=== PATIENT | female | born 1950 | race Caucasian/White ===

== ENCOUNTER 2016-10-29 09:02 | Emergency (ER) | payer MEDICARE, BC ==
[2016-10-29 09:41] VITALS: BP 137/71
--- NOTE | 2016-10-29 10:30 | UC ---
Respiratory Complaint HPI - HPI Summary HPI Summary: cough, malaise, body aches, sinus congestion for past week. Cough began a few days ago. Seems like everything got worse in past 2d, feverish, chills. ST, ear congestion. No vomiting, but will cough to point of gagging. Sinus drainage, yellow. Nonsmoker. No asthma - History of Current Complaint Chief Complaint: UCRespiratory Stated Complaint: COUGH Time Seen by Provider: 10/29/16 10:15 Hx Obtained From: Patient Onset/Duration: Gradual Onset, Lasting Weeks - 1 Timing: Constant Severity Initially: Mild Severity Currently: Moderate Aggravating Factors: Exertion, Recumbent Position Alleviating Factors: Nothing Associated Signs And Symptoms: Positive: Chills, Pleuritic Chest Pain, URI, Nasal Congestion, Hoarseness, Sinus Discomfort. Negative: Wheezing, Hemoptysis - Risk Factors Pulmonary Embolism Risk Factors: Negative Cardiac Risk Factors: Negative Pseudomonas Risk Factors: Negative Tuberculosis Risk Factors: Negative - Allergies/Home Medications Allergies/Adverse Reactions: Allergies Allergy/AdvReac Type Severity Reaction Status Date / Time No Known Allergies Allergy Verified 10/29/16 09:36 Home Medications: Home Medications Phenylephrine-Diphenhydramine- [Robitussin Severe Day & N] 1 mis PO BID PRN 05/07 [History Confirmed 10/29/16] PMH/Surg Hx/FS Hx/Imm Hx Endocrine History Of: Reports: Thyroid Disease - hypothyroid Denies: Diabetes Cardiovascular History Of: Denies: Cardiac Disorders, Hypertension Respiratory History Of: Denies: COPD, Asthma GI/ History Of: Denies: Ulcer - Surgical History Surgical History: Yes Surgery Procedure, Year, and Place: CSECTION X3, [place], recent left broken arm - Family History Known Family History: Positive: Hypertension Negative: Diabetes Family History: none - Social History Occupation: Employed Full-time Lives: Alone Alcohol Use: Occasionally Substance Use Type: None Smoking Status (MU): Never Smoked Tobacco - Immunization History Most Recent Influenza Vaccination: 2016 Review of Systems Constitutional: Negative Skin: Negative Eyes: Negative ENT: Sore Throat, Ear Ache, Nasal Discharge Respiratory: Cough Cardiovascular: Negative Gastrointestinal: Negative Genitourinary: Negative Motor: Negative Neurovascular: Negative Musculoskeletal: Myalgia Neurological: Negative Psychological: Negative All Other Systems Reviewed And Are Negative: Yes Physical Exam Triage Information Reviewed: Yes Appearance: Well-Appearing, No Pain Distress, Well-Nourished Vital Signs: Initial Vital Signs Temp 99.5 F 10/29/16 09:37 Pulse 88 10/29/16 09:37 Resp 18 10/29/16 09:37 BP 137/71 10/29/16 09:37 Pulse Ox 95 10/29/16 09:37 Vital Signs Reviewed: Yes Eye Exam: Normal ENT Exam: Normal Neck exam: Normal Respiratory Exam: Normal Respiratory: Positive: Lungs clear, Normal breath sounds, No respiratory distress, No accessory muscle use - harsh, wet cough Cardiovascular Exam: Normal Musculoskeletal Exam: Normal Neurological Exam: Normal Psychological Exam: Normal Skin Exam: Normal UC Diagnostic Evaluation - Laboratory O2 Sat by Pulse Oximetry: 95 Respiratory Course/Dx - Differential Dx/Diagnosis Differential Diagnosis/HQI/PQRI: Bronchitis, Lower Resp Infection, Sinusitis Provider Diagnoses: URI Discharge - Discharge Plan Condition: Stable Disposition: HOME Prescriptions: Albuterol HFA INHALER* [Ventolin HFA Inhaler*] 1 - 2 puff INH Q4H PRN #1 mdi PRN Reason: Cough Azithromycin TAB* [Zithromax TAB (Z-GLYNN) 250 mg #6 tabs] 2 tab PO .TODAY, THEN 1 DAILY #1 glynn Guaifenesin-Codeine [Cheratussin AC] 1 - 2 teasp PO Q6HR PRN #120 ml MDD 30ml PRN Reason: Cough Patient Education Materials: Upper Respiratory Infection (ED) Referrals: Marcial Hairston MD [Primary Care Provider] -
== END 2016-10-29 10:45 | disposition home or self-care (01) ==
LOC: UCCORT 09:02
DX: J06.9 Acute upper respiratory infection, unspecified (principal)
CPT/HCPCS: 99212; G0463

== ENCOUNTER 2017-03-13 07:42 | Emergency (ER) | payer MEDICARE, BC ==
[2017-03-13 07:52] VITALS: BP 144/79
--- NOTE | 2017-03-13 08:00 | UC ---
Complaint Female HPI - HPI Summary HPI Summary: urinary burning and frequency x 1 day no fever, no chills, no abdominal pain and no flank pain - History Of Current Complaint Chief Complaint: UCGU Stated Complaint: URINARY COMPLAINT Time Seen by Provider: 03/13/17 07:55 Hx Obtained From: Patient Onset/Duration: Gradual Onset, Lasting Days - 1, Still Present Timing: Constant Severity Initially: Moderate Severity Currently: Moderate Character: Burning Aggravating Factor(s): Urination Associated Signs And Symptoms: Negative: Fever, Back Pain, Vaginal Bleeding/ Discharge, Vaginal Discharge, Nausea, Vomiting(# Of Episodes =), Genital Swelling, Genital Blisters, Retained Foregin Body (Specify) - Allergies/Home Medications Allergies/Adverse Reactions: Allergies Allergy/AdvReac Type Severity Reaction Status Date / Time No Known Allergies Allergy Verified 03/13/17 07:47 PMH/Surg Hx/FS Hx/Imm Hx Previously Healthy: Yes Endocrine History: Hypothyroidism - Surgical History Surgical History: Yes Surgery Procedure, Year, and Place: CSECTION X3, [place], recent left broken arm - Family History Known Family History: Positive: Hypertension Negative: Diabetes Family History: none - Social History Alcohol Use: Rare Substance Use Type: None Smoking Status (MU): Never Smoked Tobacco - Immunization History Most Recent Influenza Vaccination: 2016 Review of Systems Constitutional: Negative Skin: Negative Eyes: Negative ENT: Negative Respiratory: Negative Cardiovascular: Negative Gastrointestinal: Negative Genitourinary: Dysuria All Other Systems Reviewed And Are Negative: Yes Physical Exam Triage Information Reviewed: Yes Appearance: Well-Appearing, No Pain Distress, Well-Nourished Vital Signs: Initial Vital Signs Temp 98.2 F 03/13/17 07:48 Pulse 70 03/13/17 07:48 Resp 16 03/13/17 07:48 BP 144/79 03/13/17 07:48 Pulse Ox 96 03/13/17 07:48 Vital Signs Reviewed: Yes Eyes: Positive: Conjunctiva Clear ENT: Positive: Normal ENT inspection, Hearing grossly normal, Pharynx normal Neck exam: Normal Neck: Positive: Supple, Nontender, No Lymphadenopathy Respiratory: Positive: Chest non-tender, Lungs clear, Normal breath sounds Cardiovascular: Positive: RRR, No Murmur, Pulses Normal Abdomen Description: Positive: Nontender, No Organomegaly, Soft. Negative: CVA Tenderness (R), CVA Tenderness (L) Bowel Sounds: Positive: Present Complaint Female Dx - Differential Dx/Diagnosis Provider Diagnoses: uti Discharge - Discharge Plan Condition: Stable Disposition: HOME Prescriptions: Ciprofloxacin TAB* [Cipro 500 MG TAB*] 500 mg PO BID #14 tab Patient Education Materials: Urinary Tract Infection in Women (ED) Referrals: Marcial Hairston MD [Primary Care Provider] - If Needed
== END 2017-03-13 08:16 | disposition home or self-care (01) ==
LOC: UCCORT 07:42
DX: N39.0 Urinary tract infection, site not specified (principal)
CPT/HCPCS: 81003; 87077; 87086; 87186; 99212; G0463

== ENCOUNTER 2017-07-01 17:13 | Emergency (ER) | payer MEDICARE, BC ==
[2017-07-01 17:47] VITALS: BP 155/75
== END 2017-07-01 18:20 | disposition left against medical advice (07) ==
LOC: UCCORT 17:13
DX: N39.9 Disorder of urinary system, unspecified (principal); Z53.21 Procedure and treatment not carried out due to patient leaving prior to being seen by health care provider
CPT/HCPCS: 81003

== ENCOUNTER 2017-07-01 20:17 | Emergency (ER) | payer MEDICARE, BC ==
[2017-07-01 20:31] VITALS: BP 163/81
[2017-07-01] MEDS ORDERED: Nitrofurantoin Macrocrystals* 50 MG CAP PO ONE (21:09)
--- NOTE | 2017-07-01 21:13 | UC ---
Complaint Female HPI - HPI Summary HPI Summary: dysuria, freguency and urgency for one day. this feels like prior uti and her last one was February. - History Of Current Complaint Chief Complaint: UCGU Stated Complaint: URINARY Time Seen by Provider: 07/01/17 21:04 Hx Obtained From: Patient ?: No Onset/Duration: Gradual Onset Timing: Lasting Hours Severity Initially: Moderate Severity Currently: Moderate Character: Burning Aggravating Factor(s): Coughing Alleviating Factor(s): Nothing Associated Signs And Symptoms: Positive: Negative - Allergies/Home Medications Allergies/Adverse Reactions: Allergies Allergy/AdvReac Type Severity Reaction Status Date / Time No Known Allergies Allergy Verified 07/01/17 20:25 PMH/Surg Hx/FS Hx/Imm Hx Previously Healthy: No - prior uti. denies dm. - Surgical History Surgical History: Yes Surgery Procedure, Year, and Place: CSECTION X3, [place], recent left broken arm - Family History Known Family History: Positive: Hypertension Negative: Diabetes Family History: none - Social History Alcohol Use: Rare Substance Use Type: None Smoking Status (MU): Never Smoked Tobacco - Immunization History Most Recent Influenza Vaccination: Not the 2016/2017 Season Review of Systems Genitourinary: Dysuria All Other Systems Reviewed And Are Negative: Yes Physical Exam Triage Information Reviewed: Yes Appearance: Well-Appearing, No Pain Distress, Well-Nourished Vital Signs: Initial Vital Signs Temp 97 F 07/01/17 20:26 Pulse 62 07/01/17 20:26 Resp 16 07/01/17 20:26 BP 163/81 07/01/17 20:26 Pulse Ox 98 07/01/17 20:26 Vital Signs Reviewed: Yes Eyes: Positive: Conjunctiva Clear ENT: Positive: Normal ENT inspection Neck: Positive: Supple, Nontender, No Lymphadenopathy Respiratory: Positive: No respiratory distress, No accessory muscle use Cardiovascular: Positive: RRR Abdomen Description: Negative: Distended, Guarding Musculoskeletal: Positive: Strength Intact, ROM Intact, No Edema Neurological: Positive: Alert, Muscle Tone Normal, Fatigued Psychological: Positive: Normal Response To Family, Age Appropriate Behavior Skin Exam: Normal Skin: Negative: rashes Complaint Female Dx - Differential Dx/Diagnosis Provider Diagnoses: uti. dysuria. Discharge - Discharge Plan Condition: Good Disposition: HOME Prescriptions: Nitrofurantoin Monohyd Macro [Macrobid] 100 mg PO BID #19 cap Patient Education Materials: Dysuria (ED), Urinary Tract Infection in Women (ED ) Referrals: Marcial Hairston MD [Primary Care Provider] - If Needed
--- NOTE | 2017-07-05 07:28 | UC ---
Progress - Progress Note Progress Note: Klebsiella UTI with intermediate sensitivity to nitrofurantoin. Likely best course is to change antibiotic. Bactrim sent to pharmacy.
== END 2017-07-01 21:15 | disposition home or self-care (01) ==
LOC: UCCORT 20:17
DX: N39.0 Urinary tract infection, site not specified (principal); B96.1 Klebsiella pneumoniae [K. pneumoniae] as the cause of diseases classified elsewhere
CPT/HCPCS: 81003; 87077; 87086; 87186; 99212; A9270-GY; G0463

== ENCOUNTER 2017-10-27 08:15 | Emergency (ER) | payer MEDICARE, BC ==
[2017-10-27 08:35] VITALS: BP 138/72
--- NOTE | 2017-10-27 08:52 | UC ---
Eye Complaint HPI - HPI Summary HPI Summary: pink eye x 2 days bilateral red eyes for the past 2 days + yellow / white discharge, no change in vision , no eye pain , no photophobia + cold sx - History of Current Complaint Chief Complaint: UCEye Stated Complaint: EYE COMPLAINT Time Seen by Provider: 10/27/17 08:40 Hx Obtained From: Patient ?: No Onset/Duration: Gradual Onset, Lasting Days - 2, Still Present Timing: Constant Severity Initially: Moderate Severity Currently: Moderate Pain Intensity: 0 Location of Injury: Conjunctiva Aggravating Factor(s): Blinking Alleviating Factor(s): Nothing Associated Signs And Symptoms: Positive: Drainage (Clear), Drainage (Purulent). Negative: Photophobia, Vision Impairment Bilateral, Vision Impairment Right, Vision Impairment Left, Fever, Swelling - Allergies/Home Medications Allergies/Adverse Reactions: Allergies Allergy/AdvReac Type Severity Reaction Status Date / Time No Known Allergies Allergy Verified 10/27/17 08:35 PMH/Surg Hx/FS Hx/Imm Hx Endocrine History: Thyroid Disease, Hypothyroidism - Surgical History Surgical History: Yes Surgery Procedure, Year, and Place: CSECTION X3, [place], recent left broken arm - Family History Known Family History: Positive: Hypertension Negative: Diabetes Family History: none - Social History Alcohol Use: Rare Substance Use Type: None Smoking Status (MU): Never Smoked Tobacco - Immunization History Most Recent Influenza Vaccination: Not the 2016/2017 Season Review of Systems Constitutional: Negative Skin: Negative Eyes: Drainage, Eye Redness ENT: Nasal Discharge Respiratory: Cough Cardiovascular: Negative Is Patient Immunocompromised?: No All Other Systems Reviewed And Are Negative: Yes Physical Exam Triage Information Reviewed: Yes Appearance: Well-Appearing, No Pain Distress, Well-Nourished Vital Signs: Initial Vital Signs Temp 98.0 F 10/27/17 08:31 Pulse 67 10/27/17 08:31 Resp 18 10/27/17 08:31 BP 138/72 10/27/17 08:31 Pulse Ox 97 10/27/17 08:31 Vital Signs Reviewed: Yes Eyes: Positive: Conjunctiva Inflamed - bilateral, Discharge - bilateral ENT: Positive: Normal ENT inspection, Hearing grossly normal, Pharynx normal Neck exam: Normal Neck: Positive: Supple, Nontender, No Lymphadenopathy Respiratory: Positive: Chest non-tender, Lungs clear, Normal breath sounds, No respiratory distress Cardiovascular: Positive: RRR, No Murmur, Pulses Normal, Brisk Capillary Refill Skin Exam: Normal Eye Complaint Course/Dx - Differential Dx/Diagnosis Provider Diagnoses: conjunctivitis Discharge - Discharge Plan Condition: Stable Disposition: HOME Prescriptions: Tobramycin 0.3% OPHTH.DANIEL* 1 drop BOTH EYES Q4H #1 btl Patient Education Materials: Conjunctivitis (ED) Referrals: Marcial Hairston MD [Primary Care Provider] - 5 Days
== END 2017-10-27 08:57 | disposition home or self-care (01) ==
LOC: UCCORT 08:15
DX: H10.9 Unspecified conjunctivitis (principal)
CPT/HCPCS: 99212; G0463